=== PATIENT | female | born 1935 | race Caucasian/White ===

== ENCOUNTER 2017-09-09 09:37 | Emergency (ER) | payer MEDICARE, MEDICAID ==
[~2017-09-09] VITALS: Ht 157.5 cm; Wt 54.0 kg
[~2017-09-09 09:37] MED LIST: ACET-3068 PO; CHOL10002 PO; CLOP75TA35 PO; COMIN IH; CYCL1DRO EACHEYE; FLUT16SP26 BOTHNARES; LEVO88TA2 PO; MOME45OI11 TOP; OLOP2.5D OP; RABE20TA18 PO
[2017-09-09] MEDS ORDERED: metroNIDAZOLE 500mg tablet PO ONE (10:45)
[2017-09-09] MEDS ORDERED: DOXY-257 PO (10:50)
[2017-09-09] MEDS ORDERED: METR500T4 PO (10:50)
[2017-09-09] MEDS ORDERED: doxycycline hyclate 100mg tablet.DR PO ONE (11:00)
[2017-09-09 11:12] VITALS: BP 110/68
== END 2017-09-09 11:16 | disposition home or self-care (01) ==
LOC: ER 09:38
DX: S61.452A Open bite of left hand, initial encounter (principal); L03.114 Cellulitis of left upper limb; I10 Essential (primary) hypertension; J44.9 Chronic obstructive pulmonary disease, unspecified; K21.9 Gastro-esophageal reflux disease without esophagitis; Z88.2 Allergy status to sulfonamides; Z88.1 Allergy status to other antibiotic agents; W55.01XA Bitten by cat, initial encounter; Y93.89 Activity, other specified; Y92.89 Other specified places as the place of occurrence of the external cause; Y99.8 Other external cause status
CPT/HCPCS: 99284; J3490